=== PATIENT | male | born 1965 | race Caucasian/White ===

== ENCOUNTER 2020-07-25 15:19 | Emergency (ER) | payer OTHER ==
[~2020-07-25] VITALS: Ht 180.3 cm; Wt 87.3 kg
--- NOTE | 2020-07-25 15:40 | PHYS DOC ---
Past History Past Medical History: Diabetes Past Surgical History: No Surgical History Smoking: Non-smoker Alcohol Use: Rarely Drug Use: None Adult General Chief Complaint Chief Complaint: DIZZY/LIGHT HEADED HPI HPI Patient is a 54-year-old male who presents via EMS for dizziness and blurred vision. Reports onset was approximately 8 AM this morning without any known inciting event, ingestion or trauma. Nothing known makes better or worse. Patient denies being in any pain. Reports generalized feelings of lightheadedness and feels that he has tunnel vision. Cannot accurately describe dizziness, just feels, "off balance". Patient reports moving to [facility] approximately 1 year ago, has not establish care with a primary care physician. Reports he was previously seen by primary care physician 5 years ago and was diagnosed with diabetes, states it is diet controlled, does not check his fingerstick blood sugar regularly, is not on any prescribed medications at present. Reports ongoing symptoms throughout the day worried him prompting him to call EMS for transport to our facility for evaluation Review of Systems Review of Systems Fourteen body systems of review of systems have been reviewed. See HPI for pertinent positives and negative responses, other santos all other systems are negative, non-pertinent or non-contributory Allergies Allergies Allergies Coded Allergies Type Severity Reaction Last Updated Verified No Known Drug Allergies 07/25/20 No Physical Exam Physical Exam General: Appears well, non toxic, and comfortable Skin: Warm, dry. Normal for ethnicity. HEENT: Atraumatic. PERRLA. Dry mucous membranes. Neck: Trachea midline. Normal ROM. Respiratory: Normal WOB. CTAB w/o w/r/r. No tachypnea. Cardiovascular: Tachycardic, sinus rhythm. Normal peripheral perfusion. No edema. Abdomen: Soft. Non tender. No distension. Back: Normal ROM. Musculoskeletal: No swelling or deformity. Neuro: Alert and oriented x 4. GCS 15. Normal FNF. Negative pronator drift. Normal heel to pate. Normal Brionna. CN II-XII intact. Normal strength and sensation. Normal speech. Visual acuity bilaterally 20/15, right 20/30, left 20/25. NIH stroke scale performed in 0, no significant hemianopia appreciated. Gait is unremarkable Psych: Normal affect and mood. Current Patient Data Vital Signs Vital Signs Date Time Temp Pulse Resp B/P (MAP) Pulse Ox O2 Delivery O2 Flow Rate FiO2 07/25/20 16:23 122 20 166/63 (97) 98 Lab Results Laboratory Tests Test 07/25/20 15:30 07/25/20 15:35 07/25/20 15:41 07/25/20 15:50 Urine Collection Type Unknown Urine Color Yellow Urine Clarity Clear Urine pH 5.0 Urine Specific Dayhoit 1.020 Urine Protein Neg Urine Glucose (UA) >=1000 mg/dL Urine Ketones (Stick) 80 mg/dL Urine Blood Neg Urine Nitrite Neg Urine Bilirubin Neg Urine Urobilinogen Dipstick 0.2 mg/dL Urine Leukocyte Esterase Neg Urine RBC 0 /HPF Urine WBC 0 /HPF Urine Bacteria 0 /HPF Glucose (Fingerstick) 342 mg/dL White Blood Count 10.5 x10^3/uL Red Blood Count 6.00 x10^6/uL Hemoglobin 17.4 g/dL Hematocrit 51.4 % Mean Corpuscular Volume 86 fL Mean Corpuscular Hemoglobin 29 pg Mean Corpuscular Hemoglobin Concent 34 g/dL Red Cell Distribution Width 12.9 % Platelet Count 344 x10^3/uL Neutrophils (%) (Auto) 69 % Lymphocytes (%) (Auto) 23 % Monocytes (%) (Auto) 6 % Eosinophils (%) (Auto) 1 % Basophils (%) (Auto) 1 % Neutrophils # (Auto) 7.3 x10^3uL Lymphocytes # (Auto) 2.4 x10^3/uL Monocytes # (Auto) 0.6 x10^3/uL Eosinophils # (Auto) 0.1 x10^3/uL Basophils # (Auto) 0.1 x10^3/uL Sodium Level 139 mmol/L Potassium Level 4.2 mmol/L Chloride Level 100 mmol/L Carbon Dioxide Level 26 mmol/L Anion Gap 13 Blood Urea Nitrogen 22 mg/dL Creatinine 1.0 mg/dL Estimated GFR (Cockcroft-Gault) 78.5 BUN/Creatinine Ratio 22 Glucose Level 324 mg/dL Calcium Level 9.6 mg/dL Total Bilirubin 1.1 mg/dL Aspartate Amino Transf (AST/SGOT) 11 U/L Alanine Aminotransferase (ALT/SGPT) 26 U/L Alkaline Phosphatase 88 U/L Total Protein 8.0 g/dL Albumin 4.1 g/dL Albumin/Globulin Ratio 1.1 Acetone Level Neg Bedside Venous pH 7.34 Bedside Venous pCO2 46 mmHg Bedside Venous pO2 29 mmHg Venous Blood HCO3 25 mmol/L POC Venous O2 Saturation (Elizabeth) 51 % Bedside FiO2 21 Test 07/25/20 17:39 Glucose (Fingerstick) 291 mg/dL Current Medications Medications (Trade) Dose Ordered Sig/Jovana Route PRN Reason Start Time Stop Time Status Last Admin Dose Admin Sodium Chloride 1,000 ml @ 1,000 mls/hr 1X ONCE IV 07/25/20 15:45 07/25/20 16:44 DC 07/25/20 15:42 Aspirin (Aspirin Chewable) 324 mg 1X ONCE PO 07/25/20 15:45 07/25/20 15:46 DC 07/25/20 15:44 Aspirin (Aspirin Chewable) 81 mg STK-MED ONCE .ROUTE 07/25/20 15:44 07/25/20 15:44 DC Sodium Chloride 1,000 ml @ 1,000 mls/hr 1X ONCE IV 07/25/20 17:00 07/25/20 17:59 DC 07/25/20 17:38 Insulin Human Regular (HumuLIN R VIAL) 5 unit 1X ONCE IV 07/25/20 17:00 07/25/20 17:16 DC 07/25/20 17:43 EKG EKG EKG ordered and interpreted by myself at 1534 hrs. as sinus rhythm at 116 bpm, u nremarkable intervals, left axis deviation, nonspecific T wave abnormalities noted in lead aVR otherwise no acute ischemic findings, no STEMI Radiology/Procedures Radiology/Procedures PROCEDURE: CT HEAD WO CONTRAST CT HEAD/BRAIN WO History: Reason: dizzy, hypertension / Spl. Instructions: / History: Comparison: None. Technique: Noncontrast CT imaging was performed of the head. Exposure: One or more of the following individualized dose reduction techniques were utilized for this examination: 1. Automated exposure control 2. Adjustment of the mA and/or kV according to patient size 3. Use of iterative reconstruction technique. Findings: Hypoattenuation within the left occipital lobe cortex. No intracranial hemorrhage. No mass effect. No hydrocephalus. Additional focal hypoattenuation within the left splenium of the corpus callosum. Imaged orbits are unremarkable. Imaged paranasal sinuses and mastoid air cells are clear. No acute calvarial fracture. Impression: 1. 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 Recommend MRI with and without contrast to further evaluate. Electronically signed by: Matt Fernández DO (07/25/2020 5:28 PM) [facility] Heart Score C/O Chest Pain: No HEART Score for Chest Pain: HEART Score for Chest Pain Response (Comments) Value History Slighlty/Non-Suspicious 0 ECG Normal 0 Age >45 - < 65 1 Risk Factors 1 or 2 Risk Factors 1 Troponin < Normal Limit 0 Total 2 Risk Factors: Risk Factors: DM, Current or recent (<one month) smoker, HTN, HLP, family history of CAD, obesity. Risk Scores: Risk Factors: DM, Current or recent (<one month) smoker, HTN, HLP, family history of CAD, obesity. Course & Med Decision Making Course & Med Decision Making Tachycardic otherwise hemodynamically stable patient with history concerning for hyperglycemia versus potential infarct versus other. Physical exam grossly unremarkable. ER work-up concerning for hyperglycemia and subacute infarcts of the brain Patient reexamined numerous times with continued symptoms. Patient has no PCP, I am pessimistic that he will follow-up timely with PCP and receive appropriate care and so, I feel transfer and admission is necessary I contacted hospitalist at [facility], Dr. Jacobo, and explained case at length. He agreed need for transfer and admission under his care for continued medical management and MRI. It was recommended that I provide 324 mg aspirin prior to transfer I updated patient on proposed plan of care and he was amenable, all questions and concerns addressed prior to ER transport Patient's tachycardia improved with 1 L IV normal saline bolus. 4 units IV insulin administered with improvement in hyperglycemia. 324 mg aspirin administered. Patient will require further medications such as Metformin, statin therapy etc. once transferred Critical Care Time This patient required critical care. Due to the fact that the patient required a significant amount of one on one physician - patient contact time, ordering and review of studies, arranging urgent treatment with development of a management plan, evaluation of patients response to treatment with frequent reassessments, and discussions with other providers this patient required 40 minutes of critical care time. Critical care time was indicated due to the inherent instability and/or potential for instability in this patient. The critical care time that is allocated to this patient is above and beyond any time spent on any other billable procedures performed on this patient. Dragon Disclaimer Dragon Disclaimer This electronic medical record was generated, in whole or in part, using a voice recognition dictation system. Departure Departure: Impression: Primary Impression: Dizziness Additional Impression: Blurred vision, bilateral Disposition: 02 DC/TRF OTHER SHORT TERM HOS ([facility]) Condition: STABLE Problem Qualifiers HELIO GARCIA DO Jul 25, 2020 15:40
[2020-07-25] MEDS ORDERED: ASPIRIN CHEWABLE 81 MG TABLET. ONE (15:44)
[2020-07-25] MEDS ORDERED: ASPIRIN CHEWABLE 81 MG TABLET. PO ONE ×2 (15:45→18:30)
[2020-07-25] MEDS ORDERED: IV NORMAL SALINE 1,000ML 1,000 ML IV ONE ×2 (15:45→17:00)
[2020-07-25 16:05] LABS: BASO # 0.1 x10^3/uL (0.0-0.2); BASO % 1 % (0-3); EOS # 0.1 x10^3/uL (0.0-0.7); EOS % 1 % (0-3); HEMATOCRIT 51.4 % (39.0-53.0); HEMOGLOBIN 17.4 g/dL (13.0-17.5); LYMPH # 2.4 x10^3/uL (1.0-4.8); LYMPH % 23 % (24-48); MEAN CORPUSCULAR HEMOGLOBIN 29 pg (25-35); MEAN CORPUSCULAR HGB CONC 34 g/dL (31-37); MEAN CORPUSCULAR VOLUME 86 fL (79-100); MONO # 0.6 x10^3/uL (0.0-1.1); MONO % 6 % (0-9); NEUT # 7.3 x10^3uL (1.8-7.7); NEUT % 69 % (31-73); PLATELET COUNT 344 x10^3/uL (140-400); RED CELL DISTRIBUTION WIDTH 12.9 % (11.5-14.5); WHITE BLOOD COUNT 10.5 x10^3/uL (4.0-11.0)
--- NOTE | 2020-07-25 16:14 | EKG ---
[address] [address] Test Date: 2020-07-25 Test Time: 15:31:01 Pat Name: CORI ALDANA Department: Room: Gender: M Tractor Driver: BRENNAN : 1965 Requested By: HELIO GARCIA Order Number: [id number] Reading MD: Measurements Intervals [place] Rate: 116 P: 52 NV: 154 QRS: -51 QRSD: 90 T: 44 QT: 306 QTc: 431 Interpretive Statements SINUS TACHYCARDIA ABNORMAL LEFT AXIS DEVIATION ABNORMAL ECG RI6.02 No previous ECG available for comparison
[2020-07-25 16:17] LABS: CALCIUM 9.6 mg/dL (8.5-10.1); GFR 78.5; POTASSIUM 4.2 mmol/L (3.5-5.1)
[2020-07-25 16:24] LABS: ALBUMIN 4.1 g/dL (3.4-5.0); ALBUMIN/GLOBULIN RATIO 1.1 (1.0-1.7); TOTAL BILIRUBIN 1.1 mg/dL (0.2-1.0)
[2020-07-25 16:33] LABS: BILIRUBIN,URINE NEG (NEG); CLARITY,URINE CLEAR; COLOR,URINE YELLOW; GLUCOSE,URINE >=1000 mg/dL (NEG)
[2020-07-25 16:34] LABS: BACTERIA,URINE 0 /HPF (0-FEW); NITRITE,URINE NEG (NEG); RBC,URINE 0 /HPF (0-2); UROBILINOGEN,URINE 0.2 mg/dL (0.2 mg/dL); WBC,URINE 0 /HPF (0-4)
[2020-07-25] MEDS ORDERED: INSULIN REGULAR 100 UNIT/ML 3ML VIAL. IV ONE (17:00)
--- NOTE | 2020-07-25 17:09 | RAD ---
XR CHEST 1V History: Reason: dizzy / Spl. Instructions: / History: Comparison: None. Findings: No consolidation or pleural effusion. Normal heart size. No pneumothorax. Impression: 1. No acute cardiopulmonary process. Electronically signed by: Matt Fernández DO (07/25/2020 5:06 PM) [facility]
--- NOTE | 2020-07-25 17:30 | RAD ---
CT HEAD/BRAIN WO History: Reason: dizzy, hypertension / Spl. Instructions: / History: Comparison: None. Technique: Noncontrast CT imaging was performed of the head. Exposure: One or more of the following individualized dose reduction techniques were utilized for thi s examination: 1. Automated exposure control 2. Adjustment of the mA and/or kV according to patient size 3. Use of iterative reconstruction technique. Findings: Hypoattenuation within the left occipital lobe cortex. No intracranial hemorrhage. No mass effect. No hydrocephalus. Additional focal hypoattenuation within the left splenium of the corpus callosum. Imaged orbits are unremarkable. Imaged paranasal sinuses and mastoid air cells are clear. No acute ca lvarial fracture. Impression: 1. 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 Recommend MR I with and without contrast to further evaluate. Electronically signed by: Matt Fernández DO (07/25/2020 5:28 PM) [facility]
[2020-07-25 18:39] VITALS: BP 163/103
== END 2020-07-25 19:50 | disposition short-term general hospital (02) ==
LOC: ER 15:19
DX: R42 Dizziness and giddiness (principal); H53.8 Other visual disturbances; R07.89 Other chest pain; E11.9 Type 2 diabetes mellitus without complications
CPT/HCPCS: 36415; 70450; 71045; 80053; 81001; 82010; 82803; 82947; 85025; 93005; 96361; 96374; 99291; J1815; J7030

== ENCOUNTER 2020-08-05 14:24 | Emergency (ER) | payer OTHER ==
[~2020-08-05] VITALS: Ht 180.3 cm; Wt 87.3 kg
[2020-08-05] MEDS ORDERED: ASPIRIN CHEWABLE 81 MG TABLET. PO ONE (14:30)
--- NOTE | 2020-08-05 14:35 | EKG ---
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
[2020-08-05 14:58] LABS: CALCIUM 9.2 mg/dL (8.5-10.1); GFR 78.5; POTASSIUM 4.6 mmol/L (3.5-5.1)
--- NOTE | 2020-08-05 14:58 | RAD ---
INDICATION: Reason: chest pain / Spl. Instructions: / History: COMPARISON: July 25, 2020 FINDINGS: Single view of chest obtained. No definite focal airspace consolidation. Cardiac silhouette is similar to prior. No evidence of pulmonary edema. IMPRESSION: * No focal airspace consolidation or edema. Electronically signed by: Raf Ibrahim MD (08/05/2020 2:55 PM) [id number]
[2020-08-05 15:10] LABS: ALBUMIN/GLOBULIN RATIO 1.1 (1.0-1.7); MAGNESIUM 1.9 mg/dL (1.8-2.4); TOTAL BILIRUBIN 1.6 mg/dL (0.2-1.0); TOTAL PROTEIN 7.5 g/dL (6.4-8.2)
[2020-08-05 15:11] LABS: BASO # 0.1 x10^3/uL (0.0-0.2); BASO % 1 % (0-3); EOS # 0.1 x10^3/uL (0.0-0.7); EOS % 1 % (0-3); HEMOGLOBIN 15.4 g/dL (13.0-17.5); LYMPH # 2.4 x10^3/uL (1.0-4.8); LYMPH % 29 % (24-48); MEAN CORPUSCULAR HEMOGLOBIN 29 pg (25-35); MEAN CORPUSCULAR HGB CONC 33 g/dL (31-37); MEAN CORPUSCULAR VOLUME 87 fL (79-100); MONO # 0.8 x10^3/uL (0.0-1.1); MONO % 10 % (0-9); NEUT % 60 % (31-73); PLATELET COUNT 323 x10^3/uL (140-400); RED CELL DISTRIBUTION WIDTH 12.8 % (11.5-14.5); WHITE BLOOD COUNT 8.4 x10^3/uL (4.0-11.0)
--- NOTE | 2020-08-05 15:26 | RAD ---
CT HEAD/BRAIN WO History: Reason: chest pain, confusion, recent cva / Spl. Instructions: / History: Comparison: July 25, 2020 CT. MRI July 26, 2020 Technique: Noncontrast CT imaging was performed of the head. Exposure: One or more of the following individualized dose reduction techniques were utilized for thi s examination: 1. Automated exposure control 2. Adjustment of the mA and/or kV according to patient size 3. Use of iterative reconstruction technique. Findings: No intracranial hemorrhage. No mass effect. No hydrocephalus. Evolving left occipital, splenomegaly corpus callosum and medial temporal lobe infarcts. Imaged orbits are unremarkable. Imaged paranasal sinuses and mastoid air cells are clear. No acute ca lvarial fracture. Impression: 1. No acute intracranial hemorrhage. 2. 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 Electronically signed by: Matt Fernández DO (08/05/2020 3:23 PM) [id number]
--- NOTE | 2020-08-05 15:40 | PHYS DOC ---
Past History Past Medical History: Diabetes, Stroke Past Surgical History: Tonsillectomy Smoking: Non-smoker Alcohol Use: Rarely Drug Use: None General Adult EDM: Chief Complaint: CHEST PAIN HPI: HPI: Patient is a 54-year-old male who presents with chest pressure. Patient states he was sitting at his computer about 7 AM when he started having a heaviness on his chest. Patient reports the pain was in the middle of his chest and denies radiation. Patient does report slight shortness of breath. Patient states "I felt kind of off after it happened" patient states that incident only lasted about a minute. Denied dizziness, nausea/vomiting. Patient states that he had a stroke 1 week ago and was hospitalized and released on Sunday. Patient has right-sided visual deficits from the stroke. Patient denies having any pain at this time. Denies taking anything for the chest pain. Patient has history of hypertension, diabetes. Review of Systems: Review of Systems: Constitutional: Denies fever or chills Eyes: Denies change in visual acuity HENT: Denies nasal congestion or sore throat Respiratory: Denies cough or reports shortness of breath Cardiovascular: Reports chest heaviness, denies edema GI: Denies abdominal pain, nausea, vomiting, bloody stools or diarrhea : Denies dysuria Musculoskeletal: Denies back pain or joint pain Integument: Denies rash Neurologic: Denies headache, focal weakness or sensory changes Endocrine: Denies polyuria or polydipsia Lymphatic: Denies swollen glands Psychiatric: Denies depression or anxiety Current Medications: Current Meds: Current Medications Medications (Trade) Dose Ordered Sig/Jovana Start Time Stop Time Status Last Admin Dose Admin Aspirin (Aspirin Chewable) 324 mg 1X ONCE 08/05/20 14:30 08/05/20 14:57 DC Allergies: Allergies: Allergies Coded Allergies Type Severity Reaction Last Updated Verified No Known Drug Allergies 07/25/20 No Physical Exam: PE: Constitutional: Well developed, well nourished, no acute distress, non-toxic appearance. [] HENT: Normocephalic, atraumatic, bilateral external ears normal, oropharynx moist, no oral exudates, nose normal. [] Eyes: PERRLA, EOMI, conjunctiva normal, no discharge. [] Neck: Normal range of motion, no tenderness, supple, no stridor. [] Cardiovascular:Heart rate regular rhythm, no murmur [] Lungs & Thorax: Bilateral breath sounds clear to auscultation [] Abdomen: Bowel sounds normal, soft, no tenderness, no masses, no pulsatile masses. [] Skin: Warm, dry, no erythema, no rash. [] Back: No tenderness, no CVA tenderness. [] Extremities: No tenderness, no cyanosis, no clubbing, ROM intact, no edema. [] Neurologic: Alert and oriented X 3, normal motor function, normal sensory function, no focal deficits noted. [] Psychologic: Affect normal, judgement normal, mood normal. [] Current Patient Data: Labs: Laboratory Tests Test 08/05/20 14:29 Sodium Level 140 mmol/L (136-145) Potassium Level 4.6 mmol/L (3.5-5.1) Chloride Level 104 mmol/L (98-107) Carbon Dioxide Level 28 mmol/L (21-32) Anion Gap 8 (6-14) Blood Urea Nitrogen 18 mg/dL (8-26) Creatinine 1.0 mg/dL (0.7-1.3) Estimated GFR (Cockcroft-Gault) 78.5 BUN/Creatinine Ratio 18 (6-20) Glucose Level 243 mg/dL (70-99) H Calcium Level 9.2 mg/dL (8.5-10.1) Magnesium Level 1.9 mg/dL (1.8-2.4) Total Bilirubin 1.6 mg/dL (0.2-1.0) H Aspartate Amino Transferase (AST) 14 U/L (15-37) L Alanine Aminotransferase (ALT) 30 U/L (16-63) Alkaline Phosphatase 72 U/L (46-116) Troponin I Quantitative < 0.017 ng/mL (0-0.055) UW-Cbp-U-Type Natriuretic Peptide 27 pg/mL (0-124) Total Protein 7.5 g/dL (6.4-8.2) Albumin 4.0 g/dL (3.4-5.0) Albumin/Globulin Ratio 1.1 (1.0-1.7) Vital Signs: Vital Signs Date Time Temp Pulse Resp B/P (MAP) Pulse Ox O2 Delivery O2 Flow Rate FiO2 08/05/20 14:27 97.8 74 16 162/106 (124) 100 Room Air EKG: EKG: Heart rate 77 bpm. [] Radiology/Procedures: Radiology/Procedures: []CT HEAD/BRAIN WO History: Reason: chest pain, confusion, recent cva / Spl. Instructions: / History: Comparison: July 25, 2020 CT. MRI July 26, 2020 Technique: Noncontrast CT imaging was performed of the head. Exposure: One or more of the following individualized dose reduction techniques were utilized for this examination: 1. Automated exposure control 2. Adjustment of the mA and/or kV according to patient size 3. Use of iterative reconstruction technique. Findings: No intracranial hemorrhage. No mass effect. No hydrocephalus. INDICATION: Reason: chest pain / Spl. Instructions: / History: COMPARISON: July 25, 2020 FINDINGS: Single view of chest obtained. No definite focal airspace consolidation. Cardiac silhouette is similar to prior. No evidence of pulmonary edema. IMPRESSION: * No focal airspace consolidation or edema. Electronically signed by: Raf Ibrahim MD (08/05/2020 2:55 PM) [id number] Evolving left occipital, splenomegaly corpus callosum and medial temporal lobe infarcts. Imaged orbits are unremarkable. Imaged paranasal sinuses and mastoid air cells are clear. No acute calvarial fracture. Impression: 1. No acute intracranial hemorrhage. 2. Evolving left PROCUREMENT ENGINEER territory infarcts. Electronically signed by: Matt Fernández DO (08/05/2020 3:23 PM) [id number] Heart Score: C/O Chest Pain: Yes HEART Score for Chest Pain: HEART Score for Chest Pain Response (Comments) Value History Moderately Suspicious 1 ECG Normal 0 Age >45 - < 65 1 Risk Factors >3 Risk Factors or Hx CAD 2 Troponin < Normal Limit 0 Total 4 Risk Factors: Risk Factors: DM, Current or recent (<one month) smoker, HTN, HLP, family history of CAD, obesity. Risk Scores: Score 0 - 3: 2.5% MACE over next 6 weeks - Discharge Home Score 4 - 6: 20.3% MACE over next 6 weeks - Admit for Clinical Observation Score 7 - 10: 72.7% MACE over next 6 weeks - Early Invasive Strategies Course & Med Decision Making: Course & Med Decision Making Pertinent Labs and Imaging studies reviewed. (See chart for details) [] CT of head ordered due to recent CVA and patient reporting feeling off. Rodríguez bowers denies taking anything for the chest pain prior to arrival. Patient denies any symptoms at this time. Patient did report some shortness of breath during the incident. Patient reports still lasted about 1 minute and then resolved. Patient does appear to be anxious and worried about his health since the CVA. Patient states "I did not want to be a hypochondriac". Patient's heart score is 4. EKG shows sinus rhythm. Chest x-ray is negative. Head CT shows Evolving left PROCUREMENT ENGINEER territory infarct. Patient had CTA at [facility] on 07/26. CTA showed occlusion of the distal left PROCUREMENT ENGINEER. He is currently wearing a heart monitor which he turns back in next week. It had a full neuro work-up at [facility] on 322. CTA and an MRI. Patient was cleared by neurology and discharged home. Patient has no new neuro symptoms or worsening visual problems.Patient is reporting that he feels much better, no chest pain. "I am ready to go". Patient is hemodynamically stable. Able to ambulate on his own out of the emergency room. Patient given strict instructions to return to the emergency room with chest pain, shortness of breath, AMS. Patient states that he understands and is in agreement with this plan. Dragon Disclaimer: Pressable Disclaimer: This electronic medical record was generated, in whole or in part, using a voice recognition dictation system. Departure Departure: Impression: Primary Impression: Chest pressure Disposition: 01 DC HOME SELF CARE/HOMELESS Condition: STABLE Referrals: PCPAMANDA (PCP) Patient Instructions: Chest Pain (Nonspecific), [id number] Additional Instructions: You were seen in the emergency room for chest pain. All of your labs were unremarkable. CT of your head was negative for any new acute findings. Please return to the emergency room with worsening symptoms or concerns. EMERGENCY DEPARTMENT GENERAL DISCHARGE INSTRUCTIONS Thank you for coming to [facility] (ED) today and trusting us with you care. We trust that you had a positivie experience in our Emergency Department. If you wish to speak to the department management, you may call the director at [phone]. YOUR FOLLOW UP INSTRUCTIONS ARE FOLLOWS: 1. Do you have a private Doctor? If you do not have a private doctor, please ask for a resource list of physicians or clinics that may be able to assist you with follow up care. 2. The Emergency Physician has interpreted your x-rays. The X-Ray specialist will also review them. If there is a change in the findings, you will be notified in 48 hours when at all possible. 3. A lab test or culture has been done, your results will be reviewed and you will be notified if you need a change in treatment. ADDITIONAL INSTRUCTIONS AND INFORMATION: 1. Your care today has been supervised by a physician who is specially trained in emergency care. Many problems require more than one evaluation for a complete diagnosis and treatment. We recommend that you schedule your follow up appointment as recommended to ensure complete treatment of you illness or injury. If you are unable to obtain follow up care and continue to have a problem, or if your condition worsens, we recommend that you return to the ED. 2. We are not able to safely determine your condition over the phone nor are we able to give sound medical advice over the phone. For these safety reasons, if you call for medical advice we will ask you to come to the ED for further evaluation. 3. If you have any questions regarding these discharge instructions please call the ED at [phone]. SAFETY INFORMATION: In the interest of safety, wellness, and injury prevention; we encourage you to wear your sealbelt, if you smoke; quite smoking, and we encourage family to use a protective helmet for bicycling and other sporting events that present an increased risk for head injury. IF YOUR SYMPTOMS WORSEN OR NEW SYMPTOMS DEVELOP, OR YOU HAVE CONCERNS ABOUT YOUR CONDITION; OR IF YOUR CONDITION WORSENS WHILE YOU ARE WAITING FOR YOUR FOLLOW UP APPOINTMENT; EITHER CONTACT YOUR PRIMARY CARE DOCTOR, THE PHYSICIAN WHOSE NAME AND NUMBER YOU WERE GIVEN, OR RETURN TO THE ED IMMEDIATELY. HUGO HORTA APRN Aug 05, 2020 15:39
[2020-08-05 15:42] VITALS: BP 139/88
[2020-08-05 16:36] LABS: BILIRUBIN,URINE NEG (NEG); CLARITY,URINE CLEAR; COLOR,URINE YELLOW; GLUCOSE,URINE 500 mg/dL (NEG); NITRITE,URINE NEG (NEG); UROBILINOGEN,URINE 0.2 mg/dL (0.2 mg/dL)
[2020-08-05 16:37] LABS: BACTERIA,URINE 0 /HPF (0-FEW); RBC,URINE 0 /HPF (0-2); WBC,URINE 0 /HPF (0-4)
== END 2020-08-05 16:59 | disposition home or self-care (01) ==
LOC: ER 14:24
DX: R07.89 Other chest pain (principal); E11.9 Type 2 diabetes mellitus without complications; Z86.73 Personal history of transient ischemic attack (TIA), and cerebral infarction without residual deficits
CPT/HCPCS: 36415; 70450; 71045; 80053; 81001; 83735; 83880; 84484; 85025; 93005; 99285-25